=== PATIENT | male | born 1995 | race African-American/Black ===

== ENCOUNTER 2016-09-04 13:50 | Emergency (ER) | payer BC ==
[~2016-09-04] VITALS: Ht 180.3 cm; Wt 64.4 kg
[~2016-09-04 13:50] MED LIST: IBUPROFEN 600600 M1 PO; TRAMADOL 50 MG50 MG PO; TYLENOL325 MG PO
[2016-09-04 13:53] VITALS: BP 114/80
== END 2016-09-04 14:34 | disposition home or self-care (01) ==
LOC: ER 13:50
DX: M67.432 Ganglion, left wrist (principal)

== ENCOUNTER 2016-10-23 00:27 | Emergency (ER) | payer BC, OTHER ==
[~2016-10-23] VITALS: Ht 182.9 cm; Wt 62.1 kg
[2016-10-23] MEDS ORDERED: NORCO 5-325 TA1 EACH PO (01:26)
[2016-10-23 02:18] VITALS: BP 120/69
== END 2016-10-23 02:20 | disposition home or self-care (01) ==
LOC: ER 00:27
DX: S13.4XXA Sprain of ligaments of cervical spine, initial encounter (principal); S39.012A Strain of muscle, fascia and tendon of lower back, initial encounter; V89.2XXA Person injured in unspecified motor-vehicle accident, traffic, initial encounter; Y93.89 Activity, other specified; Y92.89 Other specified places as the place of occurrence of the external cause; Y99.8 Other external cause status

== ENCOUNTER 2019-11-20 22:24 | Emergency (ER) | payer OTHER ==
[~2019-11-20] VITALS: Ht 180.3 cm; Wt 71.7 kg
[~2019-11-20 22:24] MED LIST changes: +NORCO 5-325 TA1 EACH PO
[2019-11-20 23:02] LABS: URINE BILIRUBIN NEGATIVE (Negative); URINE BLOOD NEGATIVE (Negative); URINE CLARITY CLEAR; URINE COLOR YELLOW; URINE GLUCOSE-RANDOM* NEGATIVE (Negative); URINE KETONES TRACE (Negative); URINE LEUKOCYTES-REFLEX NEGATIVE (Negative); URINE NITRITE-REFLEX NEGATIVE (Negative); URINE PROTEIN (DIPSTICK) NEGATIVE (Negative)
[2019-11-20 23:05] VITALS: BP 142/88
== END 2019-11-20 23:19 | disposition home or self-care (01) ==
LOC: ER 22:24
PROVIDERS: Emergency Medicine
DX: A64 Unspecified sexually transmitted disease (principal); R30.0 Dysuria; R30.9 Painful micturition, unspecified; R36.9 Urethral discharge, unspecified; R53.1 Weakness; R51 Headache; Z91.048 Other nonmedicinal substance allergy status

== ENCOUNTER 2020-05-07 13:04 | Emergency (ER) | payer OTHER ==
[~2020-05-07] VITALS: Ht 180.3 cm; Wt 71.2 kg
[2020-05-07] MEDS ORDERED: PROAIR HFA8.5 GM INH (13:07)
[2020-05-07] MEDS ORDERED: CLARITIN10 MG PO (15:00)
[2020-05-07] MEDS ORDERED: PREDNISONE 20 M20 MG PO (15:00)
[2020-05-07 15:02] VITALS: BP 143/82
== END 2020-05-07 15:05 | disposition home or self-care (01) ==
LOC: ER 13:04
DX: J45.901 Unspecified asthma with (acute) exacerbation (principal); Z79.899 Other long term (current) drug therapy; Z91.048 Other nonmedicinal substance allergy status